=== PATIENT | female | born 1980 | race African-American/Black ===

== ENCOUNTER → 2018-01-22 | Outpatient (CLI) | payer MEDICARE ==
[~2018-01-22] MED LIST: CEPH-368 PO; ESTROGENS CONJUGATED VAG CRM 0.625MG/1G, 30GM ONE; HALDOL PO; HYDR-3237 PO; OXYC5CAP2 PO; TRAZODONE PO; VASOPRESSIN 20 UNIT/ML, 1ML ONE; ZOLOFT PO
[2018-01-22 08:48] LABS: MICROSCOPIC AUTO
== END | disposition home or self-care (01) ==
LOC: STAR 07:50
PROVIDERS: ATTEND Student in an Organized Health Care Education/Training Program
DX: Z01.818 Encounter for other preprocedural examination (principal); N36.1 Urethral diverticulum; N39.0 Urinary tract infection, site not specified; N39.9 Disorder of urinary system, unspecified
CPT/HCPCS: 81001; 87086

== ENCOUNTER 2018-01-31 10:34 | Observation (INO) | payer MEDICARE ==
[~2018-01-31] VITALS: Ht 172.7 cm; Wt 80.5 kg
[~2018-01-31 10:34] MED LIST changes: -CEPH-368 PO; -ESTROGENS CONJUGATED VAG CRM 0.625MG/1G, 30GM ONE; -OXYC5CAP2 PO; -TRAZODONE PO; -VASOPRESSIN 20 UNIT/ML, 1ML ONE
[2018-01-31] MEDS ORDERED: LACTATED RINGERS 1,000 ML IV SCH (11:10)
[2018-01-31] MEDS ORDERED: TRAZODONE PO (11:11)
[2018-01-31 11:12] VITALS: BP 106/74
[2018-01-31] MEDS ORDERED: OxyconTIN ER 20 MG TAB.ER PO ONE (11:30)
[2018-01-31] MEDS ORDERED: GABAPENTIN 300 MG CAPSULE PO ONE (11:30)
[2018-01-31] MEDS ORDERED: BUPIVACAINE/PF-EPI 0.25% 1:200K ONE (11:43)
[2018-01-31] MEDS ORDERED: THROMBIN 5,000 UNIT VIAL TP ONE (11:44)
[2018-01-31] MEDS ORDERED: FENTANYL PF 250 MCG/5ML ONE (11:47)
[2018-01-31] MEDS ORDERED: MIDAZOLAM 1 MG/ML, 2ML ONE (11:47)
[2018-01-31] MEDS ORDERED: LIDOCAINE GEL 2%, 5ML ONE (11:48)
[2018-01-31] MEDS ORDERED: BACITRACIN 50,000 UNIT ONE (11:55)
[2018-01-31] MEDS ORDERED: SCOPOLAMINE PATCH, 1.5MG PATCH.TD72 TD PRN (13:00)
[2018-01-31] MEDS ORDERED: MEPERIDINE/PF 25MG/0.5ML IVPush PRN (13:00)
[2018-01-31] MEDS ORDERED: LABETALOL 5MG/ML, 20ML IV PRN (13:00)
[2018-01-31] MEDS ORDERED: ALBUTEROL/IPRATROPIUM 2.5MG/0.5MG, 3 ML NPPB PRN (13:00)
[2018-01-31] MEDS ORDERED: MIDAZOLAM 1 MG/ML, 2ML IV PRN (13:00)
[2018-01-31] MEDS ORDERED: PROMETHAZINE 25 MG/ML, 1ML IV PRN (13:00)
[2018-01-31] MEDS ORDERED: ACETAMINOPHEN 325 MG TABLET PO PRN (13:00)
[2018-01-31] MEDS ORDERED: HYDROmorphone 1 MG/ML, 1ML IV PRN (13:00)
[2018-01-31] MEDS ORDERED: CEFOXITIN 2 GM in DEXTROSE 5% 100 ML IV SCH (13:00)
[2018-01-31] MEDS ORDERED: ONDANSETRON 2MG/ML, 2ML IV PRN ×2 (13:00→17:00)
[2018-01-31] MEDS ORDERED: DEXAMETHASONE 4 MG/ML, 1ML ONE (14:06)
[2018-01-31] MEDS ORDERED: PROPOFOL 10 MG/ML, 20ML ONE (14:06)
[2018-01-31] MEDS ORDERED: ONDANSETRON 2MG/ML, 2ML ONE (14:06)
[2018-01-31] MEDS ORDERED: CEFAZOLIN 1,000 MG ONE (14:06)
[2018-01-31] MEDS ORDERED: FENTANYL PF 100 MCG/2ML ONE ×2 (15:14→15:35)
[2018-01-31] MEDS: FENTANYL PF 100 MCG/2ML IV PRN ×4 (15:16→15:48)
[2018-01-31] MEDS ORDERED: SUCCINYLCHOLINE 20 MG/ML, 10ML ONE (15:34)
[2018-01-31] MEDS ORDERED: ROCURONIUM 10MG/ML,5ML ONE (15:34)
[2018-01-31] MEDS ORDERED: KETOROLAC 30 MG/1 ML ONE (15:34)
[2018-01-31 16:37] VITALS: BP 102/59
[2018-01-31] MEDS ORDERED: HEPARIN 5,000 UNITS/ML, 1ML SQ ONE (17:00)
[2018-01-31] MEDS: LACTATED RINGERS 1,000 ML IV SCH ×2 (17:00→21:04)
[2018-01-31] MEDS ORDERED: morphine SULFATE 10 MG/ML, 1ML IV PRN (17:00)
[2018-01-31] MEDS ORDERED: OXYcodone 5 MG/5 ML ORAL.SOL UDC PO PRN (17:00)
[2018-01-31 19:00] VITALS: BP 103/68
[2018-01-31] MEDS ORDERED: NICOTINE 14MG/24 HR PATCH.TD24 TD SCH (19:00)
[2018-01-31] MEDS ORDERED: TRAZODONE 50MG TABLET PO SCH (21:00)
[2018-01-31] MEDS: CEFAZOLIN PMX 1GM/50ML 50 ML IVPB SCH (21:04)
[2018-01-31] MEDS: KETOROLAC 30 MG/1 ML IV PRN (21:11)
[2018-01-31] MEDS: OXYcodone 5 MG/5 ML ORAL.SOL UDC PO PRN (22:43)
[2018-01-31 23:29] VITALS: BP 93/60
[2018-02-01 03:55] VITALS: BP 96/62
[2018-02-01] MEDS: CEFAZOLIN PMX 1GM/50ML 50 ML IVPB SCH (04:55)
[2018-02-01] MEDS: KETOROLAC 30 MG/1 ML IV PRN (04:59)
[2018-02-01] MEDS ORDERED: OXYcodone 5 MG/5 ML ORAL.SOL UDC PO PRN (05:00)
[2018-02-01] MEDS ORDERED: HEPARIN 5,000 UNITS/ML, 1ML SQ SCH (08:00)
[2018-02-01 08:07] VITALS: BP 108/72
[2018-02-01] MEDS: OXYcodone 5 MG/5 ML ORAL.SOL UDC PO PRN (08:41)
[2018-02-01] MEDS ORDERED: POLYETHYLENE GLYCOL 17 GM PACKET PO SCH (09:00)
[2018-02-01] MEDS ORDERED: CEPH-368 PO (10:38)
[2018-02-01] MEDS ORDERED: OXYC5CAP2 PO (10:38)
[2018-02-01 12:15] VITALS: BP 103/64
[2018-02-01] MEDS: LACTATED RINGERS 1,000 ML IV SCH (13:00)
== END 2018-02-01 14:35 | disposition home or self-care (01) ==
LOC: OUT 10:34 → 4NOR 16:30 → OUT 16:37 → 4NOR 16:37
PROVIDERS: ADMIT Student in an Organized Health Care Education/Training Program; ATTEND Student in an Organized Health Care Education/Training Program
DX: N36.1 Urethral diverticulum (principal)
CPT/HCPCS: 53230; 81025; 88305; 96365; 96372; 96375; 96376; G0378; J0330; J0690; J1100; J1644; J1885; J2250; J2405; J2704; J3010; J7120

== ENCOUNTER 2018-02-01 21:09 | Emergency (ER) | payer MEDICARE ==
[~2018-02-01] VITALS: Ht 170.2 cm; Wt 67.0 kg
[~2018-02-01 21:09] MED LIST changes: +CEPH-368 PO; +OXYC5CAP2 PO; +TRAZODONE PO
[2018-02-01 21:18] VITALS: BP 133/86
== END 2018-02-01 22:27 | disposition home or self-care (01) ==
LOC: ED 21:34
DX: T83.031A Leakage of indwelling urethral catheter, initial encounter (principal); F17.200 Nicotine dependence, unspecified, uncomplicated; Y83.8 Other surgical procedures as the cause of abnormal reaction of the patient, or of later complication, without mention of misadventure at the time of the procedure; Y92.89 Other specified places as the place of occurrence of the external cause
CPT/HCPCS: 99283; 99284

== ENCOUNTER 2018-02-04 20:29 | Emergency (ER) | payer MEDICARE ==
[~2018-02-04] VITALS: Ht 172.7 cm; Wt 77.5 kg
[2018-02-04] MEDS ORDERED: ACETAMINOPHEN 500 MG TABLET PO ONE (22:00)
[2018-02-04] MEDS ORDERED: ACETAMINOPHEN 500 MG TABLET ONE (22:33)
[2018-02-04 22:37] LABS: MICROSCOPIC AUTO
[2018-02-04 22:38] LABS: CULTURE INDICATED? YES
[2018-02-04 23:37] VITALS: BP 105/67
== END 2018-02-04 23:40 | disposition home or self-care (01) ==
LOC: ED 23:34
DX: T83.098A Other mechanical complication of other urinary catheter, initial encounter (principal)
CPT/HCPCS: 81001; 87086; 99284